=== PATIENT | male | born 1985 | race Two or more races ===

== ENCOUNTER 2020-04-07 00:47 | Emergency (ER) | payer OTHER ==
[~2020-04-07] VITALS: Ht 182.9 cm; Wt 63.5 kg
[2020-04-07 03:43] VITALS: BP 127/81
[2020-04-07] MEDS ORDERED: IBUPROFEN 800 MG TAB PO ONE (03:45)
== END 2020-04-07 03:55 | disposition home or self-care (01) ==
LOC: ER 00:47
DX: S62.326A Displaced fracture of shaft of fifth metacarpal bone, right hand, initial encounter for closed fracture (principal); W19.XXXA Unspecified fall, initial encounter; Y93.89 Activity, other specified; Y92.89 Other specified places as the place of occurrence of the external cause; Y99.8 Other external cause status
CPT/HCPCS: 29125; 73100; 73120